=== PATIENT | male | born 1975 | race Caucasian/White ===

== ENCOUNTER 2021-09-10 04:07 | Emergency (ER) | payer MEDICARE, MEDICAID ==
[~2021-09-10] VITALS: Ht 188 cm; Wt 86.5 kg
[~2021-09-10 04:07] MED LIST: CYCL-524 PO
[2021-09-10 04:21] VITALS: BP 128/78
[2021-09-10] MEDS ORDERED: oxyCODONE IR 5mg (immed. release) tablet PO ONE (04:50)
[2021-09-10] MEDS ORDERED: ketorolac trometh inj. 60 MG/2 ML VIAL IM ONE (04:50)
[2021-09-10] MEDS ORDERED: orphenadrine citrate 60mg/2ml inj. IM ONE (04:50)
[2021-09-10] MEDS ORDERED: triamcinolone acetonide 40mg/ml inj IJ ONE (04:50)
[2021-09-10] MEDS ORDERED: acetaminophen 325mg tablet PO ONE (04:50)
[2021-09-10] MEDS ORDERED: ACET-1025 PO (05:14)
[2021-09-10] MEDS ORDERED: CYCL-1 PO (05:14)
[2021-09-10] MEDS ORDERED: LIDOcaine 1% W/epiNEPHrine 1:100,000 20ml vial ONE (08:00)
== END 2021-09-10 05:38 | disposition home or self-care (01) ==
LOC: ER 04:07
DX: M25.511 Pain in right shoulder (principal); X58.XXXA Exposure to other specified factors, initial encounter; Y93.89 Activity, other specified; Y92.89 Other specified places as the place of occurrence of the external cause; Y99.8 Other external cause status
CPT/HCPCS: 20611; 93005; 96372; 99284; J1885; J2360; J3490; 23650; 99152; 99285

== ENCOUNTER 2023-02-07 16:08 | Emergency (ER) | payer MEDICARE, OTHER, MEDICAID ==
[~2023-02-07] VITALS: Ht 188 cm; Wt 81.8 kg
[~2023-02-07 16:08] MED LIST changes: +CYCL-1 PO
[2023-02-07 16:20] VITALS: BP 127/75
== END 2023-02-07 17:32 | disposition home or self-care (01) ==
LOC: ER 16:09
DX: S16.1XXA Strain of muscle, fascia and tendon at neck level, initial encounter (principal); M25.512 Pain in left shoulder; X58.XXXA Exposure to other specified factors, initial encounter; Y93.89 Activity, other specified; Y92.89 Other specified places as the place of occurrence of the external cause; Y99.8 Other external cause status
CPT/HCPCS: 99281